=== PATIENT | male | born 1955 | race Caucasian/White ===

== ENCOUNTER → 2017-04-18 | Outpatient (CLI) | payer SELFPAY ==
[~2017-04-18] MED LIST: ACYCLOVIR800 MG PO; PERCOCET 5/31 TABLET PO; XANAX1 MG PO
== END | disposition home or self-care (01) ==
LOC: RAD 09:21
DX: K40.90 Unilateral inguinal hernia, without obstruction or gangrene, not specified as recurrent (principal); K76.0 Fatty (change of) liver, not elsewhere classified; R63.4 Abnormal weight loss
CPT/HCPCS: 74177

== ENCOUNTER → 2017-04-30 | Outpatient (CLI) | payer OTHER | END | disposition home or self-care (01) | LOC: EKG 12:55 | DX: I07.1 Rheumatic tricuspid insufficiency (principal); I05.1 Rheumatic mitral insufficiency; R94.31 Abnormal electrocardiogram [ECG] [EKG] | CPT/HCPCS: 93306 ==

== ENCOUNTER → 2017-05-16 | Outpatient (CLI) | payer OTHER | END | disposition home or self-care (01) | LOC: RAD 14:33 | DX: R07.2 Precordial pain (principal) | CPT/HCPCS: 71020 ==

== ENCOUNTER → 2017-05-29 | Outpatient (CLI) | payer OTHER | END | disposition home or self-care (01) | LOC: RAD 13:03 | DX: M17.11 Unilateral primary osteoarthritis, right knee (principal) | CPT/HCPCS: 73560 ==

== ENCOUNTER 2017-07-02 07:37 | Inpatient (IN) | payer OTHER ==
[~2017-07-02] VITALS: Ht 170.2 cm; Wt 85.0 kg
[2017-07-02] MEDS ORDERED: XANAX0.5 MG PO (08:17)
[2017-07-02 08:42] VITALS: BP 121/80
[2017-07-02 15:00] VITALS: BP 137/86
[2017-07-02 20:02] VITALS: BP 114/71
[2017-07-02 23:52] VITALS: BP 117/72
[2017-07-03 03:36] VITALS: BP 121/68
[2017-07-03 06:29] LABS: HEMATOCRIT 42.6 % (38.0-50.0); HEMOGLOBIN 14.3 G/DL (12.5-16.6); MCH 29.5 PG (29.0-34.0); MCHC 33.6 G/DL (30.0-36.0); PLATELET COUNT 170 K/uL (156-360); RBC DIS.WIDTH-SD 45.1 % (39-53); RED BLOOD COUNT 4.84 M/uL (4.00-5.50); WHITE BLOOD COUNT 10.5 K/uL (4.1-10.2)
[2017-07-03 06:53] LABS: CHLORIDE 102 MEQ/L (99-109); GFR ESTIMATE (CALCULATED) > 59 mL/min/ (58.99-99999); GLUCOSE 92 mg/dL (70-99); POTASSIUM 4.3 MEQ/L (3.7-5.4); SODIUM 137 MEQ/L (136-147); UREA NITROGEN (BUN) 8 mg/dL (9-23)
[2017-07-03 07:34] VITALS: BP 159/90
[2017-07-03] MEDS ORDERED: DILAUDID4 MG PO (08:21)
[2017-07-03] MEDS ORDERED: ONDANSETRON HCL8 MG PO (08:21)
[2017-07-03] MEDS ORDERED: COLACE100 MG PO (08:21)
== END 2017-07-03 09:35 | disposition home or self-care (01) | DRG 352 ==
LOC: SDC 07:37 → 2EAST 12:23 → 2SOUTH 12:23 → ENRESERV 13:15 → SDC 14:44 → 2EAST 15:03
PROVIDERS: Surgery
PROC: 0YUA4JZ Supplement Bilateral Inguinal Region with Synthetic Substitute, Percutaneous Endoscopic Approach (ICD-10-PCS; principal; 2017-07-02)
DX: K40.20 Bilateral inguinal hernia, without obstruction or gangrene, not specified as recurrent (principal); J44.9 Chronic obstructive pulmonary disease, unspecified; R13.10 Dysphagia, unspecified; M19.90 Unspecified osteoarthritis, unspecified site; Z85.828 Personal history of other malignant neoplasm of skin; Z87.891 Personal history of nicotine dependence
CPT/HCPCS: 80048; 85027; C1727; C1781; J0330; J0690; J1100; J1170; J2175; J2270; J2405; J2710; J2765; J3010; J7120; S0028